=== PATIENT | female | born 1965 | race Caucasian/White ===

== ENCOUNTER → 2016-08-17 | Outpatient (REF) | payer OTHER, BC | LOC: M SMT 13:11 | PROVIDERS: ATTEND Nurse Practitioner Family | DX: N39.46 Mixed incontinence (principal) ==

== ENCOUNTER 2017-09-09 08:34 | Inpatient (IN) | payer OTHER, BC ==
[2017-09-09 09:15] LABS: BASO # 0.1 10^3/uL (0.0-0.2); BASO % 0.4 % (0.0-1.0); EOS # 0.3 10^3/uL (0.0-0.50); EOS % 2.3 % (0.0-3.0); HEMATOCRIT 44.9 % (36.0-47.0); HEMOGLOBIN 14.7 g/dl (12.0-15.5); IMMATURE GRANULOCYTE % 0.5 % (0-3.0); LYMPH # 1.9 10^3/uL (1.5-4.5); LYMPH % 15.8 % (24.0-44.0); MEAN CORPUSCULAR HEMOGLOBIN 27.6 pg (27.0-33.0); MEAN CORPUSCULAR HGB CONC 32.7 g/dl (32.0-36.5); MEAN CORPUSCULAR VOLUME 84.2 fl (80.0-96.0); MONO # 0.8 10^3/uL (0.0-0.8); MONO % 6.7 % (0.0-5.0); NEUTROPHILS % 74.3 % (36.0-66.0); PLATELET COUNT, AUTOMATED 279 10^3/uL (150-450); RED BLOOD COUNT 5.33 10^6/uL (4.00-5.40); RED CELL DISTRIBUTION WIDTH 13.5 % (11.5-14.5); WHITE BLOOD COUNT 12.1 10^3/uL (4.0-10.0)
[2017-09-09] MEDS: MORPHINE 2 MG/ML 1ML SYRINGE (J2270) IV (09:18)
[2017-09-09] MEDS: ONDANSETRON 4MG/2ML VIAL (J2405) IV ×2 (09:18→15:18)
[2017-09-09] MEDS: NS 1,000 ML IV ×4 (09:18→17:40)
[2017-09-09 09:24] LABS: CONTROL LINE HCG INT CTR LINE PRESENT; HCG, SERUM QUALITATIVE NEGATIVE (NEGATIVE)
[2017-09-09 09:31] LABS: ALBUMIN 3.5 GM/DL (3.2-5.2); ALKALINE PHOSPHATASE 89 U/L (45-117); ALT/SGPT 171 U/L (12-78); ANION GAP 8 MEQ/L (8-16); AST/SGOT 315 U/L (7-37); BILIRUBIN,DIRECT 0.4 MG/DL (0.0-0.2); BILIRUBIN,TOTAL 0.8 MG/DL (0.2-1.0); BLOOD UREA NITROGEN 14 MG/DL (7-18); CALCIUM LEVEL 8.8 MG/DL (8.5-10.1); CARBON DIOXIDE LEVEL 26 MEQ/L (21-32); CHLORIDE LEVEL 106 MEQ/L (98-107); CREATININE FOR GFR 0.71 MG/DL (0.55-1.30); GLOMERULAR FILTRATION RATE > 60.0 (>51); GLUCOSE, FASTING 152 MG/DL (70-100); POTASSIUM SERUM 3.8 MEQ/L (3.5-5.1); SODIUM LEVEL 140 MEQ/L (136-145); TOTAL PROTEIN 7.4 GM/DL (6.4-8.2)
[2017-09-09] MEDS: ASPIRIN 81 MG CHEW TABLET PO (09:46)
[2017-09-09 09:48] LABS: CK-MB VALUE MASS < 1.0 NG/ML (<3.6); CPK CREATINE PHOSPHOKINASE 40 U/L (26-192); TROPONIN I < 0.02 NG/ML (< 0.10)
[2017-09-09 10:02] LABS: AMYLASE 2810 U/L (25-115); LIPASE 33040 U/L (73-393)
[2017-09-09] MEDS ORDERED: ISOVUE-370 76% 100ML VIAL (Q9967) As Ordered (10:21)
[2017-09-09] MEDS ORDERED: PERCOCET 5MG/325MG TAB PO (10:45)
[2017-09-09 11:05] LABS: KETONE, URINE AUTO RFX NEGATIVE (NEGATIVE); LEUKOCYTE ESTERASE UR AUTO RFX NEGATIVE (NEGATIVE); MUCUS, URINE RFX SMALL (NEGATIVE); NITRITE, URINE AUTO RFX NEGATIVE (NEGATIVE); RBC, URINE AUTO RFX 1 /HPF (0-3); SPECIFIC GRAVITY UR AUTO RFX 1.005 (1.002-1.035); SQUAM EPITHELIAL CELL UR AURFX 0 /HPF (0-6); WBC, URINE AUTO RFX 0 /HPF (0-3)
[2017-09-09 11:13] LABS: CPK CREATINE PHOSPHOKINASE 38 U/L (26-192); TROPONIN I < 0.02 NG/ML (< 0.10)
[2017-09-09 11:14] LABS: CK-MB VALUE MASS < 1.0 NG/ML (<3.6); MB/CK RELATIVE INDEX 2.63 (< OR =4)
[2017-09-09] MEDS: MORPHINE 4 MG/ML 1ML VIAL/SYRINGE (J2270) IV ×2 (12:05→15:19)
[2017-09-09] MEDS: PERCOCET 5MG/325MG TAB PO (15:20)
[2017-09-09] MEDS ORDERED: LORATADINE 10 MG TAB PO (17:45)
[2017-09-09] MEDS: HEPARIN SOD (PORCINE) 5000 UNITS/ML VIAL SC ×2 (17:58→22:28)
[2017-09-09] MEDS: LR 1,000 ML IV (20:01)
[2017-09-09 20:09] LABS: HEMATOCRIT 42.3 % (36.0-47.0); HEMOGLOBIN 13.6 g/dl (12.0-15.5); MEAN CORPUSCULAR HEMOGLOBIN 27.5 pg (27.0-33.0); MEAN CORPUSCULAR HGB CONC 32.2 g/dl (32.0-36.5); MEAN CORPUSCULAR VOLUME 85.5 fl (80.0-96.0); PLATELET COUNT, AUTOMATED 266 10^3/uL (150-450); RED BLOOD COUNT 4.95 10^6/uL (4.00-5.40); RED CELL DISTRIBUTION WIDTH 13.8 % (11.5-14.5); WHITE BLOOD COUNT 11.9 10^3/uL (4.0-10.0)
[2017-09-09 20:45] LABS: ALBUMIN 3.2 GM/DL (3.2-5.2); ALBUMIN/GLOBULIN RATIO 1.03 (1.00-1.93); ALKALINE PHOSPHATASE 81 U/L (45-117); ALT/SGPT 156 U/L (12-78); AST/SGOT 140 U/L (7-37); BILIRUBIN,DIRECT 0.1 MG/DL (0.0-0.2); BILIRUBIN,TOTAL 0.5 MG/DL (0.2-1.0); TOTAL PROTEIN 6.3 GM/DL (6.4-8.2)
[2017-09-10] MEDS: LR 1,000 ML IV ×3 (02:44→14:45)
[2017-09-10] MEDS: HEPARIN SOD (PORCINE) 5000 UNITS/ML VIAL SC ×2 (05:43→14:46)
[2017-09-10 06:33] LABS: HEMATOCRIT 39.2 % (36.0-47.0); HEMOGLOBIN 12.5 g/dl (12.0-15.5); MEAN CORPUSCULAR HEMOGLOBIN 27.4 pg (27.0-33.0); MEAN CORPUSCULAR HGB CONC 31.9 g/dl (32.0-36.5); MEAN CORPUSCULAR VOLUME 85.8 fl (80.0-96.0); PLATELET COUNT, AUTOMATED 224 10^3/uL (150-450); RED BLOOD COUNT 4.57 10^6/uL (4.00-5.40); RED CELL DISTRIBUTION WIDTH 13.8 % (11.5-14.5); WHITE BLOOD COUNT 9.5 10^3/uL (4.0-10.0)
[2017-09-10 06:48] LABS: ALBUMIN 2.9 GM/DL (3.2-5.2); ALBUMIN/GLOBULIN RATIO 0.94 (1.00-1.93); ALKALINE PHOSPHATASE 73 U/L (45-117); ALT/SGPT 114 U/L (12-78); ANION GAP 7 MEQ/L (8-16); AST/SGOT 65 U/L (7-37); BILIRUBIN,DIRECT 0.1 MG/DL (0.0-0.2); BILIRUBIN,TOTAL 0.7 MG/DL (0.2-1.0); BLOOD UREA NITROGEN 9 MG/DL (7-18); CALCIUM LEVEL 7.9 MG/DL (8.5-10.1); CARBON DIOXIDE LEVEL 28 MEQ/L (21-32); CHLORIDE LEVEL 107 MEQ/L (98-107); CREATININE FOR GFR 0.47 MG/DL (0.55-1.30); GLOMERULAR FILTRATION RATE > 60.0 (>51); GLUCOSE, FASTING 98 MG/DL (70-100); LIPASE 4736 U/L (73-393); POTASSIUM SERUM 3.6 MEQ/L (3.5-5.1); SODIUM LEVEL 142 MEQ/L (136-145)
[2017-09-10] MEDS: ACETAMINOPHEN TAB 650MG DOSE (2X325MG) PO ×2 (09:18→14:53)
== END 2017-09-10 17:59 | disposition home or self-care (01) | DRG 439 ==
LOC: M ED 08:34 → M ED INP 10:41 → M MS5PR 13:08
DX: K85.10 Biliary acute pancreatitis without necrosis or infection (principal); K80.41 Calculus of bile duct with cholecystitis, unspecified, with obstruction; J30.2 Other seasonal allergic rhinitis; Z79.899 Other long term (current) drug therapy; Z88.1 Allergy status to other antibiotic agents; Z91.018 Allergy to other foods

== ENCOUNTER 2017-10-21 11:06 | Day surgery (SDC) | payer OTHER, BC ==
[2017-10-21] MEDS: LR 1,000 ML IV (11:38)
[2017-10-21 11:43] LABS: BEDSIDE GLUCOSE 99 MG/DL (70-105)
[2017-10-21 11:51] LABS: CONTROL LINE UCG INT CTR LINE PRESENT; URINE PREG TEST NEGATIVE (NEGATIVE)
[2017-10-21] MEDS ORDERED: MIDAZOLAM INJ 2 MG/2 ML VIAL (J2250) As Ordered (11:51)
[2017-10-21] MEDS ORDERED: LIDOCAINE 2% INJ 100 MG/5 ML SDV (FOR ANES.) As Ordered (11:52)
[2017-10-21] MEDS ORDERED: ROCURONIUM BROMIDE 50 MG/5 ML VIAL As Ordered (11:52)
[2017-10-21] MEDS ORDERED: PROPOFOL 200 MG/20 ML VIAL As Ordered (11:52)
[2017-10-21] MEDS ORDERED: fentaNYL 100 MCG/2 ML INJECTION (J3010) As Ordered ×2 (11:52→13:51)
[2017-10-21] MEDS ORDERED: KETOROLAC 60 MG/2 ML VIAL (J1885) As Ordered (13:39)
[2017-10-21] MEDS ORDERED: ONDANSETRON 4MG/2ML VIAL (J2405) As Ordered (13:39)
[2017-10-21] MEDS ORDERED: dexameTHASONE 4 MG/ML 1ML VIAL (J1100) As Ordered (13:39)
[2017-10-21] MEDS ORDERED: LABETALOL HCL 100 MG/20 ML VIAL As Ordered (13:48)
[2017-10-21] MEDS: BUPIVACAINE/EPIN 0.25% 30 ML VIAL As Ordered (14:00)
[2017-10-21] MEDS ORDERED: LR 1,000 ML IV (14:45)
[2017-10-21] MEDS ORDERED: METOCLOPRAMIDE INJ 10MG/2ML VIAL (J2765) IV (14:45)
[2017-10-21] MEDS: ONDANSETRON 4MG/2ML VIAL (J2405) IV (14:45)
[2017-10-21] MEDS ORDERED: MEPERIDINE INJ 25 MG/ML VIAL (J2175) IV (14:45)
[2017-10-21] MEDS ORDERED: NORCO, ANEXSIA 5/325MG TABLET (HYDROcodone/ACETAMINOPHEN) PO (14:45)
[2017-10-21] MEDS ORDERED: fentaNYL 100 MCG/2 ML INJECTION (J3010) IV (14:45)
[2017-10-21] MEDS: PERCOCET 5MG/325MG TAB PO (14:45)
== END 2017-10-21 16:25 | disposition home or self-care (01) ==
LOC: M SDC 11:06
DX: K80.20 Calculus of gallbladder without cholecystitis without obstruction (principal); I25.2 Old myocardial infarction; E11.9 Type 2 diabetes mellitus without complications; Z79.899 Other long term (current) drug therapy; Z88.8 Allergy status to other drugs, medicaments and biological substances
CPT/HCPCS: 47562

== ENCOUNTER 2017-12-21 07:00 | Day surgery (SDC) | payer OTHER, BC ==
[~2017-12-21 07:00] MED LIST: NS 1,000 ML IV
[2017-12-21] MEDS ORDERED: LIDOCAINE 2% INJ 100 MG/5 ML SDV (FOR ANES.) As Ordered (07:06)
[2017-12-21] MEDS ORDERED: PROPOFOL 200 MG/20 ML VIAL As Ordered ×2 (07:06→07:44)
== END 2017-12-21 08:12 | disposition home or self-care (01) ==
LOC: M OPP 07:00
DX: Z12.11 Encounter for screening for malignant neoplasm of colon (principal); K64.0 First degree hemorrhoids; E11.9 Type 2 diabetes mellitus without complications; I25.9 Chronic ischemic heart disease, unspecified; Z90.49 Acquired absence of other specified parts of digestive tract; J30.2 Other seasonal allergic rhinitis; Z88.8 Allergy status to other drugs, medicaments and biological substances; Z91.018 Allergy to other foods
CPT/HCPCS: 45378

== ENCOUNTER → 2018-03-20 | Outpatient (REF) | payer OTHER, BC ==
[~2018-03-20] MED LIST changes: +LORA10TA3 PO; -NS 1,000 ML IV; +PERCOCET PO
[2018-03-20 16:00] LABS: FREE T3 3.6 PG/ML (2.2-4.0)
[2018-03-20 16:01] LABS: THYROGLOBULIN ANTIBODY < 15.0 U/ML (<60.0); THYROID PEROXIDASE ANTIBODY < 28.0 U/ML (<60.0)
== END ==
LOC: M LAB REF 15:29
PROVIDERS: ATTEND Nurse Practitioner Adult Health
DX: E03.9 Hypothyroidism, unspecified (principal)

== ENCOUNTER → 2018-07-14 | Outpatient (CLI) | payer OTHER, BC ==
[2018-07-14 15:03] LABS: HEMATOCRIT 42.2 % (36.0-47.0); HEMOGLOBIN 13.4 g/dl (12.0-15.5); MEAN CORPUSCULAR HEMOGLOBIN 28.4 pg (27.0-33.0); MEAN CORPUSCULAR HGB CONC 31.8 g/dl (32.0-36.5); MEAN CORPUSCULAR VOLUME 89.4 fl (80.0-96.0); PLATELET COUNT, AUTOMATED 288 10^3/uL (150-450); RED BLOOD COUNT 4.72 10^6/uL (4.00-5.40); WHITE BLOOD COUNT 11.3 10^3/uL (4.0-10.0)
[2018-07-14 15:33] LABS: FREE T4 1.06 NG/DL (0.76-1.46); THYROID STIMULATING HORMONE 1.49 uIU/ML (0.358-3.740)
[2018-07-14 15:35] LABS: EOSINOPHILS 8 % (0-5); LYMPHOCYTES 38 % (16-52); MONOCYTES 2 % (0-8); NEUTROPHILS 52 % (35-75); PLATELET ESTIMATE NORMAL (NORMAL)
== END ==
LOC: M LAB 13:11
PROVIDERS: ATTEND Advanced Practice Midwife
DX: N92.1 Excessive and frequent menstruation with irregular cycle (principal)

== ENCOUNTER → 2018-07-14 | Outpatient (REF) | payer OTHER, BC | LOC: M LAB REF 17:41 | PROVIDERS: ATTEND Advanced Practice Midwife | DX: R87.615 Unsatisfactory cytologic smear of cervix (principal); N92.1 Excessive and frequent menstruation with irregular cycle ==

== ENCOUNTER → 2018-07-21 | Outpatient (CLI) | payer OTHER, BC ==
--- NOTE | 2018-07-21 17:03 | REP ---
Pelvic sonography: History: Excessive infrequent menstruation. Findings: Transabdominal transvaginal scanning are performed. Uterine dimensions are normal 8.2 x 5.1 x 5.4 cm. Endometrial echo is 1.9 cm thick. It is irregular and heterogeneous. Endometrial neoplasia cannot be excluded. Normal ovaries are seen bilaterally. The right ovary measures 2.3 x 2.1 x 1.8 cm left ovary dimensions are 2.2 x 2.0 x 1.6 cm. Visualized bladder richmond are smooth. Impression: Irregular thickening of the endometrium extending into the myometrium. Endometrial neoplasm cannot be excluded. Otherwise negative. Electronically Signed by Anurag Aguilar MD 07/21/2018 06:34 P
== END ==
LOC: M RAD 08:34
PROVIDERS: ATTEND Advanced Practice Midwife
DX: N85.00 Endometrial hyperplasia, unspecified (principal)

== ENCOUNTER 2018-09-01 12:22 | Day surgery (SDC) | payer OTHER, BC ==
[~2018-09-01] VITALS: Ht 165.1 cm; Wt 94.3 kg
[~2018-09-01 12:22] MED LIST changes: +LEVO50TA5 PO; +LIDOCAINE 1% MDV 20ML VIAL SQ PRN; +LR 1,000 ML IV ONE; +MURO5OIN OU; +REFR0.5D8 OP; +REST0.05 OU; +SERT25TA88 PO; +ZOLP5TAB PO
[2018-09-01 13:01] LABS: HEMATOCRIT 46.9 % (36.0-47.0); HEMOGLOBIN 14.7 g/dl (12.0-15.5); MEAN CORPUSCULAR HEMOGLOBIN 27.6 pg (27.0-33.0); MEAN CORPUSCULAR HGB CONC 31.3 g/dl (32.0-36.5); PLATELET COUNT, AUTOMATED 291 10^3/uL (150-450); RED BLOOD COUNT 5.33 10^6/uL (4.00-5.40); WHITE BLOOD COUNT 8.8 10^3/uL (4.0-10.0)
[2018-09-01] MEDS ORDERED: fentaNYL 100 MCG/2 ML INJECTION (J3010) As Ordered ONE (13:45)
[2018-09-01] MEDS ORDERED: KETOROLAC 60 MG/2 ML VIAL (J1885) As Ordered ONE (13:45)
[2018-09-01] MEDS ORDERED: PROPOFOL 200 MG/20 ML VIAL As Ordered ONE (13:45)
[2018-09-01] MEDS ORDERED: dexameTHASONE 4 MG/ML 1ML VIAL (J1100) As Ordered ONE (13:45)
[2018-09-01] MEDS ORDERED: MIDAZOLAM INJ 2 MG/2 ML VIAL (J2250) As Ordered ONE (13:45)
[2018-09-01] MEDS ORDERED: LIDOCAINE 2% INJ 100 MG/5 ML SDV (FOR ANES.) As Ordered ONE (13:45)
[2018-09-01] MEDS ORDERED: ONDANSETRON 4MG/2ML VIAL (J2405) As Ordered ONE (13:45)
[2018-09-01] MEDS ORDERED: METOCLOPRAMIDE INJ 10MG/2ML VIAL (J2765) As Ordered ONE (13:45)
[2018-09-01] MEDS ORDERED: HYDROMORPHONE HCL 0.5 MG/ 0.5 ML SYRINGE (J1170 PER 1) IV PRN (14:30)
[2018-09-01] MEDS ORDERED: ONDANSETRON 4MG/2ML VIAL (J2405) IV PRN (14:30)
[2018-09-01] MEDS ORDERED: fentaNYL 100 MCG/2 ML INJECTION (J3010) IV PRN (14:30)
[2018-09-01] MEDS ORDERED: PERCOCET 5MG/325MG TAB PO PRN (14:30)
[2018-09-01] MEDS ORDERED: LR 1,000 ML IV SCH ×2 (14:30)
--- NOTE | 2018-09-01 15:00 | RO ---
DATE OF PROCEDURE: 09/01/2018 PREOPERATIVE DIAGNOSIS: Abnormal uterine bleeding. POSTOPERATIVE DIAGNOSES: Abnormal uterine bleeding, endometrial mass (favor endometrial polyp). FINDINGS: Anterior fundal endometrial polyp/mass approximately 2 cm in greatest dimension. No other intrauterine, intracavitary mass. Otherwise atrophic appearing endometrium. PROCEDURE PERFORMED: 1. Hysteroscopy dilatation and curettage. 2. MyoSure morcellation of endometrial polyp. SURGEON: Frankie Apodaca DO ASSISTANTS: Sveta Patiño, PGY-3, MARY LOU Ocampo III ANESTHESIA TYPE: General via laryngeal mask airway (LMA). SPECIMENS SENT TO PATHOLOGY: 1. Endometrial polyp (in morcellated fragments). 2. Endometrial curettings. ESTIMATED BLOOD LOSS: 5 mL. FLUIDS REPLACED: 600 mL. FLUID DEFICIT: 100 mL normal saline. DRAINS: In-and-out catheter, 50 mL. COMPLICATIONS: None. PREOPERATIVE ANTIBIOTICS: None. INDICATION: The patient is a 52-year-old with ongoing abnormal uterine bleeding. An attempt at an in-office [place] endometrial biopsy was unsuccessful. A pelvic ultrasound did reveal evidence of a possible intrauterine mass. The decision was made to proceed to the operating room for hysteroscopy dilatation and curettage and MyoSure, if needed. PROCEDURE: The patient was counseled and consented on the risks, benefits, indications, and alternatives to the procedure. Informed consent was obtained. She was taken to operating room with IV running and placed on operating table in the dorsal supine position. General anesthesia was administered and the airway secured without any difficulty. She was placed in a high lithotomy position. She was prepared and draped in the normal sterile fashion. Time out was performed per protocol. The bladder was drained with a sterile in-and-out catheter. A sterile speculum was placed with good visualization of the cervix. The anterior lip of the cervix was grasped with a single-tooth tenaculum and downward traction was applied. The cervix was sequentially dilated with Pedro Luis dilators up to #16. The hysteroscope was placed transcervically into the intrauterine cavity with the findings noted above. Given the solitary endometrial mass that had the appearance of a polyp, the decision made to use the MyoSure "LITE" device to morcellate this mass. The MyoSure LITE device was brought to the level of the mass and morcellation was activated. The entire mass was removed until there was a smooth contour of the entire endometrial cavity indicating no additional / residual mass. The background endometrium looked atrophic. The hysteroscope was removed. A curette was placed transcervically into the intrauterine cavity and sharp curettage was performed throughout the cavity with minimal tissue return. The curette was removed. Sponge, lap, needle and instrument counts were correct. All instruments were removed from the vagina. The tenaculum sites were noted to be hemostatic. The patient tolerated the entire procedure very well. She was transferred to the postanesthesia care unit (PACU) in good and stable condition. DARVIN
[2018-09-01 16:00] VITALS: BP 150/77
== END 2018-09-01 16:10 | disposition home or self-care (01) ==
LOC: M SDC 12:22
PROVIDERS: ATTEND Obstetrics & Gynecology
DX: N95.0 Postmenopausal bleeding (principal); N84.0 Polyp of corpus uteri; E11.9 Type 2 diabetes mellitus without complications; Z79.899 Other long term (current) drug therapy
CPT/HCPCS: 36415; 58558; 85027; 86850; 86900; 86901; 88305; J1100; J1885; J2250; J2405; J2765; J3010

== ENCOUNTER 2019-05-11 06:08 | Day surgery (SDC) | payer OTHER, BC ==
[~2019-05-11] VITALS: Ht 165.1 cm; Wt 94.8 kg
[~2019-05-11 06:08] MED LIST changes: -LIDOCAINE 1% MDV 20ML VIAL SQ PRN; +LOTE0.5G OU; -LR 1,000 ML IV ONE; +SERT25TA21 PO; -SERT25TA88 PO; +WELLTAB38 PO
[2019-05-11] MEDS ORDERED: MIDAZOLAM INJ 2 MG/2 ML VIAL (J2250) As Ordered ONE (06:34)
[2019-05-11] MEDS ORDERED: fentaNYL 100 MCG/2 ML INJECTION (J3010) As Ordered ONE (06:34)
[2019-05-11] MEDS ORDERED: propofoL 200 MG/20 ML VIAL As Ordered ONE (06:35)
[2019-05-11] MEDS ORDERED: ONDANSETRON 4MG/2ML VIAL (J2405) As Ordered ONE (06:35)
[2019-05-11] MEDS ORDERED: ACETAMINOPHEN 1000MG 100ML IV BTL (OFIRMEV) (J0131 PER 10MG) As Ordered ONE (06:35)
[2019-05-11] MEDS ORDERED: dexameTHASONE 4 MG/ML 1ML VIAL (J1100) As Ordered ONE (06:35)
[2019-05-11] MEDS ORDERED: LIDOCAINE 2% INJ 100 MG/5 ML SDV (FOR ANES.) As Ordered ONE (06:35)
[2019-05-11] MEDS ORDERED: PHENYLephrine HCL 500 MCG/5 ML (100MCG/ML) SYRINGE (J2370) As Ordered ONE (06:35)
[2019-05-11] MEDS ORDERED: ePHEDrine SULFATE 25 MG/5 ML(5MG/ML) SYRINGE As Ordered ONE (06:35)
[2019-05-11 06:44] LABS: HEMATOCRIT 44.1 % (36.0-47.0); HEMOGLOBIN 13.7 g/dl (12.0-15.5); MEAN CORPUSCULAR HEMOGLOBIN 27.1 pg (27.0-33.0); MEAN CORPUSCULAR HGB CONC 31.1 g/dl (32.0-36.5); MEAN CORPUSCULAR VOLUME 87.2 fl (80.0-96.0); PLATELET COUNT, AUTOMATED 331 10^3/uL (150-450); RED BLOOD COUNT 5.06 10^6/uL (4.00-5.40); WHITE BLOOD COUNT 11.4 10^3/uL (4.0-10.0)
[2019-05-11] MEDS ORDERED: LR 1,000 ML IV ONE (07:00)
[2019-05-11] MEDS ORDERED: SILVER NITRATE APPLICATOR As Ordered ONE (07:11)
[2019-05-11] MEDS ORDERED: SCOPOLAMINE 1MG TRANSDERMAL PATCH TOP ONE (07:30)
[2019-05-11] MEDS ORDERED: OXYC1TAB23 PO (08:27)
[2019-05-11] MEDS ORDERED: IBUP80TA PO (08:29)
[2019-05-11] MEDS ORDERED: oxyCODONE 5MG TAB PO PRN (08:45)
[2019-05-11] MEDS ORDERED: LR 1,000 ML IV SCH ×3 (08:45→09:45)
[2019-05-11] MEDS ORDERED: ONDANSETRON 4MG/2ML VIAL (J2405) IV PRN (08:45)
[2019-05-11] MEDS ORDERED: METOCLOPRAMIDE INJ 10MG/2ML VIAL (J2765) IV PRN (08:45)
[2019-05-11] MEDS ORDERED: MEPERIDINE INJ 25 MG/ML VIAL (J2175) IV PRN (08:45)
[2019-05-11] MEDS ORDERED: fentaNYL 100 MCG/2 ML INJECTION (J3010) IV PRN (08:45)
[2019-05-11 09:50] VITALS: BP 165/89
== END 2019-05-11 09:55 | disposition home or self-care (01) ==
LOC: M SDC 06:08
PROVIDERS: ATTEND Obstetrics & Gynecology
DX: N85.8 Other specified noninflammatory disorders of uterus (principal); E11.9 Type 2 diabetes mellitus without complications; I25.2 Old myocardial infarction; I34.8 Other nonrheumatic mitral valve disorders; R94.31 Abnormal electrocardiogram [ECG] [EKG]; M54.5 Low back pain; R19.7 Diarrhea, unspecified; Z86.19 Personal history of other infectious and parasitic diseases; F32.9 Major depressive disorder, single episode, unspecified; R35.0 Frequency of micturition; R39.15 Urgency of urination; Z88.1 Allergy status to other antibiotic agents; Z91.018 Allergy to other foods; Z79.899 Other long term (current) drug therapy
CPT/HCPCS: 36415; 58563; 85027; 86850; 86900; 86901; 88305; J0131; J1100; J2250; J2370; J2405; J3010

== ENCOUNTER → 2021-03-19 | Outpatient (REF) ==
[~2021-03-19] MED LIST changes: +IBUP80TA PO; +OXYC1TAB23 PO
== END ==
LOC: M LABSMTC 10:28
PROVIDERS: ATTEND Family Medicine
DX: Z11.52 Encounter for screening for COVID-19 (principal)

== ENCOUNTER 2021-04-23 00:07 | Emergency (ER) | payer OTHER, BC ==
[~2021-04-23] VITALS: Ht 162.6 cm; Wt 95.9 kg
[2021-04-23 00:09] VITALS: BP 136/81
[2021-04-23] MEDS ORDERED: ACETAMINOPHEN 325 MG TAB PO ONE (00:50)
== END 2021-04-23 02:03 | disposition home or self-care (01) ==
LOC: M ED 00:07
DX: S80.02XA Contusion of left knee, initial encounter (principal); S93.431A Sprain of tibiofibular ligament of right ankle, initial encounter; S63.502A Unspecified sprain of left wrist, initial encounter; S82.832K Other fracture of upper and lower end of left fibula, subsequent encounter for closed fracture with nonunion; W01.0XXA Fall on same level from slipping, tripping and stumbling without subsequent striking against object, initial encounter; Y92.9 Unspecified place or not applicable; Y93.9 Activity, unspecified; Y99.0 Civilian activity done for income or pay; M17.12 Unilateral primary osteoarthritis, left knee; E11.9 Type 2 diabetes mellitus without complications; J30.2 Other seasonal allergic rhinitis; F32.A Depression, unspecified; Z88.1 Allergy status to other antibiotic agents; Z79.899 Other long term (current) drug therapy

== ENCOUNTER → 2021-05-07 | Outpatient (CLI) | payer OTHER | LOC: M RAD 13:03 | PROVIDERS: ATTEND Physician Assistant | DX: S80.02XA Contusion of left knee, initial encounter (principal); W18.30XA Fall on same level, unspecified, initial encounter; Y92.009 Unspecified place in unspecified non-institutional (private) residence as the place of occurrence of the external cause ==

== ENCOUNTER → 2021-06-09 | Outpatient (CLI) | payer OTHER | LOC: M PLAIMG 11:01 | PROVIDERS: ATTEND Physician Assistant | DX: S63.502A Unspecified sprain of left wrist, initial encounter (principal); Y92.9 Unspecified place or not applicable; Y93.9 Activity, unspecified; Y99.9 Unspecified external cause status ==

== ENCOUNTER → 2021-06-25 | Outpatient (CLI) | payer OTHER | LOC: M PLAIMG 15:23 | PROVIDERS: ATTEND Physician Assistant | DX: S82.64XD Nondisplaced fracture of lateral malleolus of right fibula, subsequent encounter for closed fracture with routine healing (principal); S82.045D Nondisplaced comminuted fracture of left patella, subsequent encounter for closed fracture with routine healing; S82.092D Other fracture of left patella, subsequent encounter for closed fracture with routine healing; W18.30XD Fall on same level, unspecified, subsequent encounter ==

== ENCOUNTER → 2022-05-03 | Outpatient (CLI) | payer BC ==
[2022-05-03 07:32] LABS: BASO # 0.1 10^3/uL (0.0-0.2); BASO % 0.7 % (0.0-1.0); EOS # 0.4 10^3/uL (0.0-0.5); EOS % 2.7 % (0.0-3.0); HEMATOCRIT 44.4 % (36.0-47.0); HEMOGLOBIN 13.8 g/dl (12.0-15.5); LYMPH # 4.2 10^3/uL (1.5-5.0); LYMPH % 32.1 % (24.0-44.0); MEAN CORPUSCULAR HEMOGLOBIN 27.4 pg (27.0-33.0); MEAN CORPUSCULAR HGB CONC 31.1 g/dl (32.0-36.5); MEAN CORPUSCULAR VOLUME 88.3 fl (80.0-96.0); MONO # 0.8 10^3/uL (0.0-0.8); MONO % 5.9 % (2.0-8.0); NEUTROPHILS # 7.6 10^3/uL (1.5-8.5); NEUTROPHILS % 58.2 % (36.0-66.0); PLATELET COUNT, AUTOMATED 332 10^3/uL (150-450); RED BLOOD COUNT 5.03 10^6/uL (4.00-5.40)
[2022-05-03 08:23] LABS: ALBUMIN 3.3 G/DL (3.2-5.2); ALKALINE PHOSPHATASE 95 U/L (46-116); ALT/SGPT 20 U/L (7.0-40); AST/SGOT 16 U/L (<34); BILIRUBIN,TOTAL 0.4 MG/DL (0.3-1.2); BLOOD UREA NITROGEN 15 MG/DL (9-23); CALCIUM LEVEL 8.9 MG/DL (8.5-10.1); CARBON DIOXIDE LEVEL 29 MMOL/L (20-31); CHLORIDE LEVEL 103 MMOL/L (98-107); CHOLESTEROL LEVEL 170 MG/DL (<200); CHOLESTEROL RISK RATIO 3.77 (<5); CREATININE FOR GFR 0.48 MG/DL (0.55-1.30); GLOMERULAR FILTRATION RATE > 60.0 (>51); GLUCOSE, FASTING 162 MG/DL (60-100); NON-HDL-C 125 MG/DL; POTASSIUM SERUM 4.2 MMOL/L (3.5-5.1); SODIUM LEVEL 139 MMOL/L (136-145); THYROID STIMULATING HORMONE 1.993 uIU/ML (0.55-4.78); TOTAL PROTEIN 6.4 G/DL (5.7-8.2); TRIGLYCERIDES LEVEL 115 MG/DL (<150)
[2022-05-03 08:56] LABS: HEMOGLOBIN A1c 8.9 % (4.0-6.0)
== END ==
LOC: M LAB 06:48
PROVIDERS: ATTEND Internal Medicine Cardiovascular Disease
DX: R94.31 Abnormal electrocardiogram [ECG] [EKG] (principal)

== ENCOUNTER → 2023-02-21 | Outpatient (CLI) | payer BC ==
[2023-02-21 09:31] LABS: HEMOGLOBIN A1c 6.4 % (4.0-6.0)
[2023-02-21 10:23] LABS: CHOLESTEROL RISK RATIO 3.94 (<5); HDL CHOLESTEROL 42.3 MG/DL (>40); LDL CHOLESTEROL 103.1 MG/DL (<100); NON-HDL-C 124.7 MG/DL
== END ==
LOC: M LAB 06:55
PROVIDERS: ATTEND Registered Nurse
DX: E11.65 Type 2 diabetes mellitus with hyperglycemia (principal); E78.00 Pure hypercholesterolemia, unspecified

== ENCOUNTER → 2023-08-20 | Outpatient (CLI) | payer BC ==
[2023-08-20 08:47] LABS: HEMATOCRIT 44.3 % (36.0-47.0); HEMOGLOBIN 13.4 g/dl (12.0-15.5); MEAN CORPUSCULAR HGB CONC 30.2 g/dl (32.0-36.5); MEAN CORPUSCULAR VOLUME 82.8 fl (80.0-96.0); PLATELET COUNT, AUTOMATED 324 10^3/uL (150-450); RED BLOOD COUNT 5.35 10^6/uL (4.00-5.40); WHITE BLOOD COUNT 8.9 10^3/uL (4.0-10.0)
[2023-08-20 09:08] LABS: HEMOGLOBIN A1c 6.2 % (4.0-6.0)
[2023-08-20 09:15] LABS: ALBUMIN 3.5 G/DL (3.2-5.2); ALKALINE PHOSPHATASE 97 U/L (46-116); ALT/SGPT 22 U/L (7.0-40); AST/SGOT 9 U/L (<34); BILIRUBIN,TOTAL 0.4 MG/DL (0.3-1.2); BLOOD UREA NITROGEN 17 MG/DL (9-23); CALCIUM LEVEL 9.1 MG/DL (8.5-10.1); CARBON DIOXIDE LEVEL 29 MMOL/L (20-31); CHLORIDE LEVEL 109 MMOL/L (98-107); CHOLESTEROL LEVEL 156 MG/DL (<200); CHOLESTEROL RISK RATIO 3.82 (<5); CREATININE FOR GFR 0.55 MG/DL (0.55-1.30); GLOMERULAR FILTRATION RATE > 60.0 (>51); GLUCOSE, FASTING 104 MG/DL (60-100); HDL CHOLESTEROL 40.8 MG/DL (>40); LDL CHOLESTEROL 93.4 MG/DL (<100); NON-HDL-C 115.2 MG/DL; POTASSIUM SERUM 4.7 MMOL/L (3.5-5.1); SODIUM LEVEL 142 MMOL/L (136-145); TOTAL PROTEIN 6.6 G/DL (5.7-8.2); TRIGLYCERIDES LEVEL 109 MG/DL (<150)
[2023-08-20 09:29] LABS: HEPATITIS B SURFACE ANTIGEN NEGATIVE (NEGATIVE)
[2023-08-20 09:50] LABS: HEPATITIS B CORE ANTIBODY IGM NEGATIVE (NEGATIVE)
[2023-08-20 09:56] LABS: HEPATITIS C VIRUS ABY INDEX < 0.02 INDEX (<0.8)
== END ==
LOC: M LAB 08:20
PROVIDERS: ATTEND Registered Nurse
DX: E11.65 Type 2 diabetes mellitus with hyperglycemia (principal); Z79.899 Other long term (current) drug therapy; M16.11 Unilateral primary osteoarthritis, right hip; E78.00 Pure hypercholesterolemia, unspecified; Z20.5 Contact with and (suspected) exposure to viral hepatitis

== ENCOUNTER → 2024-03-13 | Outpatient (CLI) | payer BC ==
[2024-03-13 09:24] LABS: BASO # 0.1 10^3/uL (0.0-0.2); BASO % 0.9 % (0.0-1.0); EOS # 0.5 10^3/uL (0.0-0.5); EOS % 5.6 % (0.0-3.0); HEMOGLOBIN 15.3 g/dl (12.0-15.5); LYMPH # 3.3 10^3/uL (1.5-5.0); MEAN CORPUSCULAR HEMOGLOBIN 27.7 pg (27.0-33.0); MEAN CORPUSCULAR HGB CONC 31.9 g/dl (32.0-36.5); MONO # 0.6 10^3/uL (0.0-0.8); MONO % 6.5 % (2.0-8.0); NEUTROPHILS # 4.7 10^3/uL (1.5-8.5); NEUTROPHILS % 50.7 % (36.0-66.0); PLATELET COUNT, AUTOMATED 295 10^3/uL (150-450); RED BLOOD COUNT 5.52 10^6/uL (4.00-5.40); WHITE BLOOD COUNT 9.3 10^3/uL (4.0-10.0)
[2024-03-13 09:48] LABS: ALBUMIN 3.8 G/DL (3.2-5.2); ALKALINE PHOSPHATASE 87 U/L (35-104); ALT/SGPT 25 U/L (7.0-40); AST/SGOT 11 U/L (<34); BILIRUBIN,TOTAL 0.4 MG/DL (0.3-1.2); BLOOD UREA NITROGEN 24 MG/DL (9-23); CARBON DIOXIDE LEVEL 28 MMOL/L (20-31); CHLORIDE LEVEL 109 MMOL/L (98-107); CHOLESTEROL LEVEL 186 MG/DL (<200); CHOLESTEROL RISK RATIO 3.68 (<5); CREATININE FOR GFR 0.56 MG/DL (0.55-1.30); GLOMERULAR FILTRATION RATE > 60.0 (>45); GLUCOSE, FASTING 116 MG/DL (74-106); HDL CHOLESTEROL 50.5 MG/DL (>40); LDL CHOLESTEROL 113.5 MG/DL (<100); NON-HDL-C 135.5 MG/DL; POTASSIUM SERUM 4.4 MMOL/L (3.5-5.1); SODIUM LEVEL 144 MMOL/L (136-145); TOTAL PROTEIN 6.9 G/DL (5.7-8.2); TRIGLYCERIDES LEVEL 110 MG/DL (<150)
[2024-03-13 09:49] LABS: THYROID STIMULATING HORMONE 2.336 uIU/ML (0.55-4.78)
[2024-03-13 10:11] LABS: HEMOGLOBIN A1c 6.4 % (4.0-6.0)
[2024-03-14 08:17] LABS: LDL DIRECT 126 mg/dL (<100)
== END ==
LOC: M LAB 08:46
PROVIDERS: ATTEND Registered Nurse
DX: R94.31 Abnormal electrocardiogram [ECG] [EKG] (principal)

== ENCOUNTER → 2024-04-24 | Outpatient (CLI) | payer BC | LOC: M RAD 17:33 | PROVIDERS: ATTEND Physician Assistant Medical | DX: M25.572 Pain in left ankle and joints of left foot (principal) ==